=== PATIENT | female | born 1950 | race African-American/Black ===

== ENCOUNTER 2021-12-02 06:27 | Inpatient (IN) ==
[2021-12-02] MEDS ORDERED: 0.9 % Sodium Chloride 1,000 ML IVC ONE (07:01)
[2021-12-02] MEDS ORDERED: Ondansetron 4 MG/2 ML VIAL IVP ONE (07:01)
[2021-12-02] MEDS: *HR* FentaNYL (PF) 100 MCG/2 ML VIAL IVP ONE ×2 (07:27→07:41)
[2021-12-02] MEDS ORDERED: ceFAZolin 2,000 MG in Water for inj. (sterile) 20 ML IVP ONE (07:37)
[2021-12-02] MEDS ORDERED: Tdap (Boostrix) Vaccine 0.5 ML SYRINGE IM ONE (08:15)
[2021-12-02] MEDS ORDERED: Ondansetron 4 MG/2 ML VIAL IVP PRN (08:28)
[2021-12-02] MEDS ORDERED: Naloxone 0.4 MG/ML INJ IVP PRN (08:28)
[2021-12-02 08:52] LABS: Basophils % 0.4 %; Hematocrit 35.4 % (35.3-44.9); Hemoglobin 11.2 g/dL (11.5-15.4); Immature Granulocytes % 0.5 % (0-4); Lymphocytes # 1.5 K/mcL (0.6-4.6); Lymphocytes % 13.9 %; Mean Corpuscular HGB Conc 31.6 g/dL (31.6-35.5); Mean Corpuscular Hemoglobin 22.6 pg (28.0-33.3); Mean Corpuscular Volume 71.5 fL (83.0-100.0); Mean Platelet Volume 10.4 fL (9.4-12.4); Monocytes # 0.6 K/mcL (0.0-1.3); Monocytes % 5.8 %; Neutrophils # 8.8 K/mcL (1.6-8.9); Platelet Count 319 K/mcL (140-400); Red Blood Count 4.95 M/mcL (3.82-4.97); Red Cell Distribution Width 14.8 % (11.5-14.5); Segmented Neutrophils % 79.4 %; White Blood Count 11.1 K/mcL (4.3-11.1)
[2021-12-02 09:00] LABS: INR 1.1; Prothrombin Time 11.7 Seconds (9.4-12.1)
[2021-12-02 09:11] LABS: Calcium 9.7 mg/dL (8.6-10.3); Potassium 2.9 mEq/L (3.5-5.1)
[2021-12-02] MEDS ORDERED: *HR* Promethazine 25 MG/ML VIAL IM ONE (10:30)
[2021-12-02] MEDS: *HR* OxyCODONE Immed Rel 5 MG TABLET PO PRN ×2 (10:30→19:22)
[2021-12-02] MEDS: *HR* HYDROcodone/Acet 5/325 mg TABLET PO PRN (13:41)
[2021-12-02] MEDS: Aspirin 81 MG TAB.CHEW PO SCH (15:54)
[2021-12-02] MEDS: Metoprolol XL (24 HR) Succ 25 MG TAB.ER.24H PO SCH (15:54)
[2021-12-02] MEDS ORDERED: Iopamidol - 370 500 ML MLS IVP ONE (16:11)
[2021-12-02] MEDS: Acetaminophen 325 MG TABLET PO PRN (16:23)
[2021-12-02] MEDS ORDERED: Aspirin 325 MG TABLET PO ONE (18:00)
[2021-12-02] MEDS ORDERED: *HR* Heparin 5,000 UNIT/ML VIAL IVP ONE (18:39)
[2021-12-02] MEDS ORDERED: *HR* Heparin 5,000 UNIT/ML VIAL IVP PRN ×2 (18:39)
[2021-12-02] MEDS ORDERED: *HR* LORazepam 1 MG TABLET PO PRN ×3 (18:49)
[2021-12-02 20:11] LABS: Potassium 3.6 mEq/L (3.5-5.1)
[2021-12-02] MEDS: Heparin 25,000UNIT/250ML 1/2NS 25,000 UNIT/250 ML IV.SOLN IVC SCH (20:17)
[2021-12-02] MEDS: Thiamine (B-1) 200 MG in 0.9 % Sodium Chloride 50 ML IVPB SCH (20:19)
[2021-12-03] MEDS: *HR* OxyCODONE Immed Rel 5 MG TABLET PO PRN ×4 (01:34→23:26)
[2021-12-03 02:06] LABS: Basophils % 0.3 %; Eosinophils % 0.3 %; Hematocrit 32.9 % (35.3-44.9); Hemoglobin 10.2 g/dL (11.5-15.4); Immature Granulocytes % 0.4 % (0-4); Lymphocytes # 3.8 K/mcL (0.6-4.6); Mean Corpuscular Hemoglobin 22.5 pg (28.0-33.3); Mean Corpuscular Volume 72.5 fL (83.0-100.0); Mean Platelet Volume 10.5 fL (9.4-12.4); Monocytes # 1.3 K/mcL (0.0-1.3); Monocytes % 8.6 %; Neutrophils # 9.9 K/mcL (1.6-8.9); Platelet Count 274 K/mcL (140-400); Red Blood Count 4.54 M/mcL (3.82-4.97); Red Cell Distribution Width 15.2 % (11.5-14.5); Segmented Neutrophils % 65.4 %; White Blood Count 15.2 K/mcL (4.3-11.1)
[2021-12-03 02:24] LABS: Calcium 9.1 mg/dL (8.6-10.3); Magnesium 1.9 mg/dL (1.6-2.6); Potassium 3.6 mEq/L (3.5-5.1)
[2021-12-03] MEDS: *HR* HYDROcodone/Acet 5/325 mg TABLET PO PRN ×2 (05:37→20:24)
[2021-12-03] MEDS: Metoprolol XL (24 HR) Succ 25 MG TAB.ER.24H PO SCH (08:58)
[2021-12-03] MEDS: Acetaminophen 325 MG TABLET PO PRN (08:58)
[2021-12-03] MEDS: Folic Acid 1 MG TABLET PO SCH (08:59)
[2021-12-03] MEDS: cefTRIAXone 1,000 MG in 0.9 % Sodium Chloride Mini Bag 100 ML IVPB SCH (08:59)
[2021-12-03] MEDS: Aspirin 81 MG TAB.CHEW PO SCH (08:59)
[2021-12-03] MEDS: Thiamine (B-1) 200 MG in 0.9 % Sodium Chloride 50 ML IVPB SCH (10:07)
[2021-12-03 10:33] LABS: Bilirubin,Urine Negative (Negative); Blood,Urine Negative (Negative); Clarity,Urine Clear (Clear); Color,Urine Colorless (Yellow); Glucose,Urine (UA) Normal (Normal); Ketones,Urine Negative (Negative); Leukocyte Esterase,Urine Large (Negative); Mucus,Urine Few per lpf (None-Few); Nitrite,Urine Negative (Negative); PH,Urine 6.5 pH Units (5.0-8.0); Protein,Urine Negative (Neg-Trace); RBC,Urine 0-3 per hpf (0-3); Renal Epithelial Cells,Urine Few per hpf (None-Few); Specific Gravity,Urine 1.015 (1.010-1.025); Squamous Epithelial Cell,Urine Few per hpf (None-Few); Urobilinogen,Urine Normal (Normal)
[2021-12-03 11:00] LABS: Hepatitis B Surface Antigen Nonreactive (Nonreactive)
[2021-12-03 11:29] LABS: Hepatitis B Core IgM Nonreactive (Nonreactive)
[2021-12-03 11:30] LABS: Hepatitis A Antibody IgM Nonreactive (Nonreactive)
[2021-12-03] MEDS: *HR* Labetalol 20 MG/4 ML SYRINGE IVP PRN ×2 (17:42→23:57)
[2021-12-03] MEDS: Morphine Sulfate 2 MG/ML SYRINGE IVP PRN ×2 (17:52→21:59)
[2021-12-03 18:54] LABS: Hepatitis C Virus Antibody Reactive (Nonreactive)
[2021-12-04] MEDS: Heparin 25,000UNIT/250ML 1/2NS 25,000 UNIT/250 ML IV.SOLN IVC SCH (03:56)
[2021-12-04 04:22] LABS: Basophils # 0.1 K/mcL (0.0-0.2); Basophils % 0.7 %; Eosinophils # 0.1 K/mcL (0.0-0.6); Estimated Average Glucose 134 mg/dl; Hematocrit 33.5 % (35.3-44.9); Hemoglobin 10.2 g/dL (11.5-15.4); Hemoglobin A1C 6.3 %; Immature Granulocytes % 0.3 % (0-4); Lymphocytes # 3.9 K/mcL (0.6-4.6); Lymphocytes % 33.4 %; Mean Corpuscular HGB Conc 30.4 g/dL (31.6-35.5); Mean Corpuscular Hemoglobin 22.4 pg (28.0-33.3); Mean Corpuscular Volume 73.5 fL (83.0-100.0); Mean Platelet Volume 10.8 fL (9.4-12.4); Monocytes # 1.1 K/mcL (0.0-1.3); Monocytes % 9.6 %; Neutrophils # 6.4 K/mcL (1.6-8.9); Platelet Count 243 K/mcL (140-400); Red Blood Count 4.56 M/mcL (3.82-4.97); Red Cell Distribution Width 15.4 % (11.5-14.5); White Blood Count 11.7 K/mcL (4.3-11.1)
[2021-12-04 04:43] LABS: Calcium 9.1 mg/dL (8.6-10.3); Potassium 3.7 mEq/L (3.5-5.1)
[2021-12-04 04:44] LABS: Chol/HDL Ratio 2.9 (0-4.9)
[2021-12-04] MEDS: *HR* OxyCODONE Immed Rel 5 MG TABLET PO PRN ×3 (05:31→23:43)
[2021-12-04] MEDS: Thiamine (B-1) 200 MG in 0.9 % Sodium Chloride 50 ML IVPB SCH (08:21)
[2021-12-04] MEDS: cefTRIAXone 1,000 MG in 0.9 % Sodium Chloride Mini Bag 100 ML IVPB SCH (08:31)
[2021-12-04] MEDS: Folic Acid 1 MG TABLET PO SCH (08:36)
[2021-12-04] MEDS: Aspirin 81 MG TAB.CHEW PO SCH (08:36)
[2021-12-04] MEDS: Metoprolol XL (24 HR) Succ 25 MG TAB.ER.24H PO SCH (08:37)
[2021-12-04] MEDS: *HR* HYDROcodone/Acet 5/325 mg TABLET PO PRN ×2 (09:33→21:07)
[2021-12-04] MEDS ORDERED: *HR* FentaNYL (PF) 100 MCG/2 ML VIAL IVP PRN (10:24)
[2021-12-04] MEDS ORDERED: Ondansetron 4 MG/2 ML VIAL IVP PRN (10:24)
[2021-12-04] MEDS ORDERED: CeFAZolin Syr 2,000MG/20 ML 2,000 MG/20 ML SYRINGE IVPB ONE (10:30)
[2021-12-04] MEDS ORDERED: *HR* FentaNYL (PF) 100 MCG/2 ML VIAL ONE (10:59)
[2021-12-04] MEDS ORDERED: *HR* Propofol 200 MG/20 ML VIAL IVP ONE (10:59)
[2021-12-04] MEDS ORDERED: *HR* Midazolam HCl 2 MG/2 ML VIAL ONE (10:59)
[2021-12-04] MEDS ORDERED: Ondansetron 4 MG/2 ML VIAL ONE (10:59)
[2021-12-04] MEDS ORDERED: Ropivacaine/PF 0.5% 30 ML VIAL ONE (11:01)
[2021-12-04] MEDS ORDERED: ROPIVACAINE/PF/NS 0.25% 1 EACH SYRINGE INTRAART ONE (11:01)
[2021-12-04] MEDS ORDERED: Lidocaine -MPF 2% 5 ML VIAL ONE (12:19)
[2021-12-04] MEDS ORDERED: *HR* Labetalol 20 MG/4 ML SYRINGE IVP PRN (14:07)
[2021-12-04] MEDS ORDERED: *HR* Labetalol 20 MG/4 ML SYRINGE IVP ONE (14:14)
[2021-12-04] MEDS: *HR* Labetalol 20 MG/4 ML SYRINGE IVP PRN ×2 (15:55→23:44)
[2021-12-04] MEDS: Ringers Solution, Lactated 1,000 ML IVC SCH (19:00)
[2021-12-05 01:55] LABS: Basophils % 0.1 %; Hemoglobin 9.6 g/dL (11.5-15.4); Immature Granulocytes % 0.4 % (0-4); Lymphocytes # 1.2 K/mcL (0.6-4.6); Lymphocytes % 8.5 %; Mean Corpuscular Hemoglobin 22.4 pg (28.0-33.3); Mean Corpuscular Volume 72.4 fL (83.0-100.0); Mean Platelet Volume 10.2 fL (9.4-12.4); Monocytes % 6.9 %; Neutrophils # 11.9 K/mcL (1.6-8.9); Platelet Count 254 K/mcL (140-400); Red Blood Count 4.28 M/mcL (3.82-4.97); Red Cell Distribution Width 15.1 % (11.5-14.5); Segmented Neutrophils % 84.1 %; White Blood Count 14.2 K/mcL (4.3-11.1)
[2021-12-05 02:17] LABS: Calcium 9.1 mg/dL (8.6-10.3); Potassium 3.9 mEq/L (3.5-5.1)
[2021-12-05 02:47] LABS: Folate 10.4 ng/mL (3.0-16.0)
[2021-12-05] MEDS: *HR* Labetalol 20 MG/4 ML SYRINGE IVP PRN (05:44)
[2021-12-05] MEDS: Aspirin 81 MG TAB.CHEW PO SCH (07:46)
[2021-12-05] MEDS: Folic Acid 1 MG TABLET PO SCH (07:46)
[2021-12-05] MEDS: Metoprolol XL (24 HR) Succ 25 MG TAB.ER.24H PO SCH (07:46)
[2021-12-05] MEDS: cefTRIAXone 1,000 MG in 0.9 % Sodium Chloride Mini Bag 100 ML IVPB SCH (07:47)
[2021-12-05] MEDS: Acetaminophen 325 MG TABLET PO PRN (07:47)
[2021-12-05] MEDS ORDERED: amLODIPine 5 MG TABLET PO SCH (09:30)
[2021-12-05] MEDS: carvediloL 6.25 MG TABLET PO SCH ×2 (09:57→19:42)
[2021-12-05] MEDS: amLODIPine 5 MG TABLET PO SCH (11:23)
[2021-12-05] MEDS: *HR* OxyCODONE Immed Rel 5 MG TABLET PO PRN (13:16)
[2021-12-05] MEDS: Heparin 25,000UNIT/250ML 1/2NS 25,000 UNIT/250 ML IV.SOLN IVC SCH (14:19)
[2021-12-05] MEDS ORDERED: Iopamidol - 370 200 ML INFUS..BTL ONE (14:29)
[2021-12-05] MEDS ORDERED: *HR* Heparin 10,000 UNIT/10 ML VIAL ONE (14:29)
[2021-12-05] MEDS ORDERED: Heparin 1,000 UNITS/500 mL 500 ML ONE (14:29)
[2021-12-05] MEDS ORDERED: 0.9 % Sodium Chloride 2,000 ML ONE (14:29)
[2021-12-05] MEDS ORDERED: Nitroglycerin 1,000 MCG/5 ML VIAL IV ONE (14:30)
[2021-12-05] MEDS ORDERED: *HR* Midazolam HCl 2 MG/2 ML VIAL ONE ×2 (15:22→15:56)
[2021-12-05] MEDS ORDERED: *HR* FentaNYL (PF) 100 MCG/2 ML VIAL ONE (15:22)
[2021-12-05] MEDS ORDERED: carvediloL 6.25 MG TABLET ONE (19:12)
[2021-12-05] MEDS ORDERED: *HR* Heparin 5,000 UNIT/ML VIAL ONE (20:13)
[2021-12-05] MEDS ORDERED: *HR* HYDROcodone/Acet 5/325 mg TABLET ONE (20:23)
[2021-12-05] MEDS: *HR* Heparin 5,000 UNIT/ML VIAL SQ SCH (20:26)
[2021-12-05] MEDS: *HR* HYDROcodone/Acet 5/325 mg TABLET PO PRN (20:30)
[2021-12-06] MEDS: Ringers Solution, Lactated 1,000 ML IVC SCH ×2 (05:22→11:25)
[2021-12-06] MEDS: *HR* HYDROcodone/Acet 5/325 mg TABLET PO PRN (05:24)
[2021-12-06] MEDS: *HR* Heparin 5,000 UNIT/ML VIAL SQ SCH ×3 (05:24→22:02)
[2021-12-06 08:11] LABS: Basophils # 0.1 K/mcL (0.0-0.2); Basophils % 0.4 %; Eosinophils # 0.1 K/mcL (0.0-0.6); Eosinophils % 0.4 %; Hematocrit 29.6 % (35.3-44.9); Hemoglobin 9.3 g/dL (11.5-15.4); Immature Granulocytes % 0.9 % (0-4); Lymphocytes # 3.8 K/mcL (0.6-4.6); Lymphocytes % 27.9 %; Mean Corpuscular HGB Conc 31.4 g/dL (31.6-35.5); Mean Corpuscular Hemoglobin 22.9 pg (28.0-33.3); Mean Corpuscular Volume 72.7 fL (83.0-100.0); Mean Platelet Volume 10.2 fL (9.4-12.4); Neutrophils # 8.6 K/mcL (1.6-8.9); Platelet Count 257 K/mcL (140-400); Red Blood Count 4.07 M/mcL (3.82-4.97); Red Cell Distribution Width 15.2 % (11.5-14.5); Segmented Neutrophils % 63.4 %; White Blood Count 13.6 K/mcL (4.3-11.1)
[2021-12-06 08:12] LABS: BUN/Creatinine Ratio 23 (6-26); Blood Urea Nitrogen 16 mg/dL (8-23); Calcium 8.9 mg/dL (8.6-10.3); Carbon Dioxide 26 mEq/L (23-29); Chloride 106 mEq/L (98-107); Glucose 103 mg/dL (70-105); Osmolality,Calculated 287 (280-300); Potassium 3.7 mEq/L (3.5-5.1); Sodium 138 mEq/L (136-145)
[2021-12-06] MEDS ORDERED: amLODIPine 5 MG TABLET PO SCH (09:00)
[2021-12-06] MEDS ORDERED: Metoprolol XL (24 HR) Succ 50 MG TAB.ER.24H PO SCH (09:00)
[2021-12-06] MEDS: Folic Acid 1 MG TABLET PO SCH (09:54)
[2021-12-06] MEDS: lisinopriL 20 MG TABLET PO SCH (09:55)
[2021-12-06] MEDS: amLODIPine 5 MG TABLET PO SCH (09:55)
[2021-12-06] MEDS: Aspirin 81 MG TAB.CHEW PO SCH (09:55)
[2021-12-06] MEDS: cefTRIAXone 1,000 MG in 0.9 % Sodium Chloride Mini Bag 100 ML IVPB SCH (09:55)
[2021-12-06] MEDS: Morphine Sulfate 2 MG/ML SYRINGE IVP PRN ×2 (09:59→16:49)
[2021-12-06] MEDS: carvediloL 6.25 MG TABLET PO SCH ×2 (10:06→18:39)
[2021-12-06] MEDS: hydroCHLOROthiazide 25 MG TABLET PO SCH ×2 (15:26→16:49)
[2021-12-06] MEDS: *HR* OxyCODONE Immed Rel 5 MG TABLET PO PRN (22:02)
[2021-12-07 05:51] LABS: Basophils # 0.1 K/mcL (0.0-0.2); Basophils % 0.6 %; Eosinophils # 0.2 K/mcL (0.0-0.6); Eosinophils % 1.5 %; Hematocrit 32.4 % (35.3-44.9); Hemoglobin 9.9 g/dL (11.5-15.4); Immature Granulocytes % 1.2 % (0-4); Lymphocytes # 4.6 K/mcL (0.6-4.6); Lymphocytes % 35.1 %; Mean Corpuscular HGB Conc 30.6 g/dL (31.6-35.5); Mean Corpuscular Hemoglobin 22.1 pg (28.0-33.3); Mean Corpuscular Volume 72.3 fL (83.0-100.0); Mean Platelet Volume 10.6 fL (9.4-12.4); Monocytes # 1.2 K/mcL (0.0-1.3); Monocytes % 9.3 %; Neutrophils # 6.8 K/mcL (1.6-8.9); Nucleated Red Blood Cells 0.3 /100 WBC (0); Platelet Count 285 K/mcL (140-400); Red Blood Count 4.48 M/mcL (3.82-4.97); Red Cell Distribution Width 15.1 % (11.5-14.5); Segmented Neutrophils % 52.3 %
[2021-12-07 06:12] LABS: BUN/Creatinine Ratio 18 (6-26); Blood Urea Nitrogen 13 mg/dL (8-23); Calcium 9.1 mg/dL (8.6-10.3); Carbon Dioxide 25 mEq/L (23-29); Chloride 103 mEq/L (98-107); Glucose 99 mg/dL (70-105); Osmolality,Calculated 280 (280-300); Potassium 3.7 mEq/L (3.5-5.1); Sodium 135 mEq/L (136-145)
[2021-12-07] MEDS: *HR* OxyCODONE Immed Rel 5 MG TABLET PO PRN ×3 (07:13→22:13)
[2021-12-07] MEDS: *HR* Heparin 5,000 UNIT/ML VIAL SQ SCH ×3 (07:13→22:13)
[2021-12-07] MEDS: carvediloL 6.25 MG TABLET PO SCH ×2 (08:36→17:56)
[2021-12-07] MEDS: hydroCHLOROthiazide 25 MG TABLET PO SCH (08:36)
[2021-12-07] MEDS: Aspirin 81 MG TAB.CHEW PO SCH (08:37)
[2021-12-07] MEDS: amLODIPine 5 MG TABLET PO SCH (08:37)
[2021-12-07] MEDS: Folic Acid 1 MG TABLET PO SCH (08:37)
[2021-12-07] MEDS: lisinopriL 20 MG TABLET PO SCH (08:37)
[2021-12-07] MEDS: cefTRIAXone 1,000 MG in 0.9 % Sodium Chloride Mini Bag 100 ML IVPB SCH (08:38)
[2021-12-07] MEDS: Ringers Solution, Lactated 1,000 ML IVC SCH (12:59)
[2021-12-08] MEDS: *HR* OxyCODONE Immed Rel 5 MG TABLET PO PRN ×2 (04:13→22:25)
[2021-12-08 04:36] LABS: Basophils # 0.1 K/mcL (0.0-0.2); Basophils % 0.8 %; Eosinophils # 0.2 K/mcL (0.0-0.6); Eosinophils % 1.9 %; Hematocrit 35.6 % (35.3-44.9); Immature Granulocytes % 2.7 % (0-4); Lymphocytes # 1.9 K/mcL (0.6-4.6); Lymphocytes % 16.7 %; Mean Corpuscular HGB Conc 30.9 g/dL (31.6-35.5); Mean Corpuscular Hemoglobin 22.3 pg (28.0-33.3); Mean Corpuscular Volume 72.1 fL (83.0-100.0); Mean Platelet Volume 10.4 fL (9.4-12.4); Monocytes % 8.5 %; Nucleated Red Blood Cells 0.3 /100 WBC (0); Platelet Count 307 K/mcL (140-400); Red Blood Count 4.94 M/mcL (3.82-4.97); Red Cell Distribution Width 15.2 % (11.5-14.5); Segmented Neutrophils % 69.4 %; White Blood Count 11.5 K/mcL (4.3-11.1)
[2021-12-08 04:52] LABS: Calcium 9.9 mg/dL (8.6-10.3); Potassium 3.8 mEq/L (3.5-5.1)
[2021-12-08] MEDS: *HR* Heparin 5,000 UNIT/ML VIAL SQ SCH ×3 (06:40→21:49)
[2021-12-08] MEDS: Folic Acid 1 MG TABLET PO SCH (07:53)
[2021-12-08] MEDS: Aspirin 81 MG TAB.CHEW PO SCH (07:53)
[2021-12-08] MEDS: amLODIPine 5 MG TABLET PO SCH (07:54)
[2021-12-08] MEDS: cefTRIAXone 1,000 MG in 0.9 % Sodium Chloride Mini Bag 100 ML IVPB SCH (07:54)
[2021-12-08] MEDS: carvediloL 6.25 MG TABLET PO SCH ×2 (07:54→17:48)
[2021-12-08] MEDS: hydroCHLOROthiazide 25 MG TABLET PO SCH (07:54)
[2021-12-08] MEDS: lisinopriL 20 MG TABLET PO SCH (07:54)
[2021-12-08] MEDS: *HR* HYDROcodone/Acet 5/325 mg TABLET PO PRN (08:07)
[2021-12-08] MEDS: Ondansetron 4 MG/2 ML VIAL IVP PRN (11:25)
[2021-12-08] MEDS: Acetaminophen 325 MG TABLET PO PRN (22:25)
[2021-12-09] MEDS: *HR* Heparin 5,000 UNIT/ML VIAL SQ SCH ×3 (05:38→23:01)
[2021-12-09 05:40] LABS: Basophils # 0.1 K/mcL (0.0-0.2); Basophils % 0.8 %; Eosinophils # 0.1 K/mcL (0.0-0.6); Eosinophils % 0.8 %; Hematocrit 32.7 % (35.3-44.9); Hemoglobin 10.3 g/dL (11.5-15.4); Immature Granulocytes % 2.3 % (0-4); Lymphocytes # 2.4 K/mcL (0.6-4.6); Lymphocytes % 22.2 %; Mean Corpuscular HGB Conc 31.5 g/dL (31.6-35.5); Mean Corpuscular Hemoglobin 22.6 pg (28.0-33.3); Mean Corpuscular Volume 71.9 fL (83.0-100.0); Mean Platelet Volume 10.1 fL (9.4-12.4); Monocytes # 1.6 K/mcL (0.0-1.3); Monocytes % 15.4 %; Neutrophils # 6.2 K/mcL (1.6-8.9); Nucleated Red Blood Cells 0.2 /100 WBC (0); Platelet Count 288 K/mcL (140-400); Red Blood Count 4.55 M/mcL (3.82-4.97); Red Cell Distribution Width 15.3 % (11.5-14.5); Segmented Neutrophils % 58.5 %; White Blood Count 10.6 K/mcL (4.3-11.1)
[2021-12-09 06:00] LABS: Calcium 9.6 mg/dL (8.6-10.3); Potassium 3.5 mEq/L (3.5-5.1)
[2021-12-09] MEDS: Acetaminophen 325 MG TABLET PO PRN (06:43)
[2021-12-09] MEDS: carvediloL 6.25 MG TABLET PO SCH ×2 (06:51→15:05)
[2021-12-09] MEDS ORDERED: *HR* Propofol 200 MG/20 ML VIAL IVP ONE ×2 (07:40→08:37)
[2021-12-09] MEDS ORDERED: *HR* FentaNYL (PF) 100 MCG/2 ML VIAL ONE (07:40)
[2021-12-09] MEDS ORDERED: Ropivacaine/PF 0.5% 30 ML VIAL ONE (07:43)
[2021-12-09] MEDS ORDERED: *HR* HYDROmorphone PF 0.5 MG/0.5 ML SYRINGE IVP PRN (07:58)
[2021-12-09] MEDS: Aspirin 81 MG TAB.CHEW PO SCH (08:00)
[2021-12-09] MEDS: lisinopriL 20 MG TABLET PO SCH (08:00)
[2021-12-09] MEDS: cefTRIAXone 1,000 MG in 0.9 % Sodium Chloride Mini Bag 100 ML IVPB SCH (08:00)
[2021-12-09] MEDS: Folic Acid 1 MG TABLET PO SCH (08:00)
[2021-12-09] MEDS: hydroCHLOROthiazide 25 MG TABLET PO SCH (08:00)
[2021-12-09] MEDS: amLODIPine 5 MG TABLET PO SCH (08:00)
[2021-12-09] MEDS ORDERED: Lidocaine -MPF 2% 5 ML VIAL ONE (08:12)
[2021-12-09] MEDS ORDERED: *HR* Succinylcholine 200 MG/10 ML VIAL IVP ONE (08:12)
[2021-12-09] MEDS ORDERED: Ondansetron 4 MG/2 ML VIAL ONE (08:19)
[2021-12-09] MEDS ORDERED: EPHEDrine 50 MG/ML VIAL ONE (08:26)
[2021-12-09] MEDS ORDERED: Sugammadex Sodium 200 MG/2 ML VIAL IV ONE (09:07)
[2021-12-09] MEDS: *HR* OxyCODONE Immed Rel 5 MG TABLET PO PRN (19:32)
[2021-12-10] MEDS: *HR* OxyCODONE Immed Rel 5 MG TABLET PO PRN ×3 (04:05→21:07)
[2021-12-10 04:44] LABS: Basophils % 0.2 %; Hematocrit 31.2 % (35.3-44.9); Immature Granulocytes % 1.4 % (0-4); Lymphocytes # 1.6 K/mcL (0.6-4.6); Mean Corpuscular HGB Conc 32.1 g/dL (31.6-35.5); Mean Corpuscular Hemoglobin 22.8 pg (28.0-33.3); Mean Corpuscular Volume 71.2 fL (83.0-100.0); Mean Platelet Volume 9.9 fL (9.4-12.4); Monocytes # 1.6 K/mcL (0.0-1.3); Monocytes % 12.6 %; Neutrophils # 9.6 K/mcL (1.6-8.9); Nucleated Red Blood Cells 0.2 /100 WBC (0); Platelet Count 297 K/mcL (140-400); Red Blood Count 4.38 M/mcL (3.82-4.97); Red Cell Distribution Width 14.9 % (11.5-14.5); Segmented Neutrophils % 73.8 %
[2021-12-10 05:04] LABS: BUN/Creatinine Ratio 19 (6-26); Blood Urea Nitrogen 13 mg/dL (8-23); Calcium 9.5 mg/dL (8.6-10.3); Carbon Dioxide 23 mEq/L (23-29); Chloride 101 mEq/L (98-107); Glucose 125 mg/dL (70-105); Osmolality,Calculated 278 (280-300); Potassium 3.8 mEq/L (3.5-5.1); Sodium 133 mEq/L (136-145)
[2021-12-10] MEDS: *HR* Heparin 5,000 UNIT/ML VIAL SQ SCH ×3 (06:36→21:07)
[2021-12-10] MEDS: *HR* HYDROcodone/Acet 5/325 mg TABLET PO PRN ×2 (06:42→22:59)
[2021-12-10] MEDS: amLODIPine 5 MG TABLET PO SCH (09:28)
[2021-12-10] MEDS: Aspirin 81 MG TAB.CHEW PO SCH (09:28)
[2021-12-10] MEDS: lisinopriL 20 MG TABLET PO SCH (09:28)
[2021-12-10] MEDS: Folic Acid 1 MG TABLET PO SCH (09:29)
[2021-12-10] MEDS: cefTRIAXone 1,000 MG in 0.9 % Sodium Chloride Mini Bag 100 ML IVPB SCH (09:29)
[2021-12-10] MEDS: carvediloL 6.25 MG TABLET PO SCH ×2 (09:29→17:39)
[2021-12-10] MEDS: hydroCHLOROthiazide 25 MG TABLET PO SCH (09:29)
[2021-12-11] MEDS: *HR* Heparin 5,000 UNIT/ML VIAL SQ SCH ×3 (05:12→22:24)
[2021-12-11] MEDS: *HR* OxyCODONE Immed Rel 5 MG TABLET PO PRN ×2 (05:12→12:15)
[2021-12-11] MEDS: cefTRIAXone 1,000 MG in 0.9 % Sodium Chloride Mini Bag 100 ML IVPB SCH (07:31)
[2021-12-11] MEDS: Aspirin 81 MG TAB.CHEW PO SCH (07:33)
[2021-12-11] MEDS: lisinopriL 20 MG TABLET PO SCH (07:33)
[2021-12-11] MEDS: amLODIPine 5 MG TABLET PO SCH (07:33)
[2021-12-11] MEDS: Folic Acid 1 MG TABLET PO SCH (07:33)
[2021-12-11] MEDS: hydroCHLOROthiazide 25 MG TABLET PO SCH (07:33)
[2021-12-11] MEDS: carvediloL 6.25 MG TABLET PO SCH ×2 (07:33→16:58)
[2021-12-11] MEDS ORDERED: HYDROCHLOROTHIAZIDE 50 MG PO SCH (09:00)
[2021-12-11 14:41] LABS: Basophils # 0.1 K/mcL (0.0-0.2); Basophils % 0.5 %; Eosinophils % 0.3 %; Hematocrit 31.9 % (35.3-44.9); Hemoglobin 9.9 g/dL (11.5-15.4); Immature Granulocytes % 1.3 % (0-4); Lymphocytes # 3.6 K/mcL (0.6-4.6); Lymphocytes % 34.5 %; Mean Corpuscular Hemoglobin 22.7 pg (28.0-33.3); Mean Corpuscular Volume 73.2 fL (83.0-100.0); Mean Platelet Volume 10.1 fL (9.4-12.4); Monocytes # 0.9 K/mcL (0.0-1.3); Monocytes % 8.8 %; Neutrophils # 5.7 K/mcL (1.6-8.9); Platelet Count 265 K/mcL (140-400); Red Blood Count 4.36 M/mcL (3.82-4.97); Red Cell Distribution Width 15.1 % (11.5-14.5); Segmented Neutrophils % 54.6 %; White Blood Count 10.4 K/mcL (4.3-11.1)
[2021-12-11 16:36] LABS: Calcium 9.5 mg/dL (8.6-10.3); Potassium 4.5 mEq/L (3.5-5.1)
[2021-12-11] MEDS: *HR* HYDROcodone/Acet 5/325 mg TABLET PO PRN (19:41)
[2021-12-11] MEDS: Acetaminophen 325 MG TABLET PO PRN (23:14)
[2021-12-12] MEDS: *HR* Heparin 5,000 UNIT/ML VIAL SQ SCH ×3 (06:01→21:23)
[2021-12-12] MEDS: *HR* OxyCODONE Immed Rel 5 MG TABLET PO PRN ×3 (06:04→21:18)
[2021-12-12] MEDS: amLODIPine 5 MG TABLET PO SCH (08:40)
[2021-12-12] MEDS: Folic Acid 1 MG TABLET PO SCH (08:40)
[2021-12-12] MEDS: Aspirin 81 MG TAB.CHEW PO SCH (08:44)
[2021-12-12] MEDS: hydroCHLOROthiazide 25 MG TABLET PO SCH (08:44)
[2021-12-12] MEDS: carvediloL 6.25 MG TABLET PO SCH ×2 (08:44→16:26)
[2021-12-12] MEDS: lisinopriL 20 MG TABLET PO SCH (08:45)
[2021-12-12 09:38] LABS: Basophils # 0.1 K/mcL (0.0-0.2); Basophils % 0.5 %; Eosinophils # 0.1 K/mcL (0.0-0.6); Eosinophils % 0.6 %; Hematocrit 34.1 % (35.3-44.9); Hemoglobin 10.4 g/dL (11.5-15.4); Immature Granulocytes % 2.2 % (0-4); Lymphocytes # 3.8 K/mcL (0.6-4.6); Lymphocytes % 38.1 %; Mean Corpuscular HGB Conc 30.5 g/dL (31.6-35.5); Mean Corpuscular Hemoglobin 21.9 pg (28.0-33.3); Mean Corpuscular Volume 71.8 fL (83.0-100.0); Mean Platelet Volume 10.2 fL (9.4-12.4); Monocytes # 1.3 K/mcL (0.0-1.3); Monocytes % 12.8 %; Neutrophils # 4.6 K/mcL (1.6-8.9); Nucleated Red Blood Cells 0.2 /100 WBC (0); Platelet Count 331 K/mcL (140-400); Red Blood Count 4.75 M/mcL (3.82-4.97); Segmented Neutrophils % 45.8 %
[2021-12-12 09:49] LABS: Calcium 9.9 mg/dL (8.6-10.3); Potassium 3.7 mEq/L (3.5-5.1)
[2021-12-13 05:35] LABS: Basophils # 0.1 K/mcL (0.0-0.2); Basophils % 0.5 %; Eosinophils # 0.1 K/mcL (0.0-0.6); Eosinophils % 0.9 %; Hematocrit 34.6 % (35.3-44.9); Hemoglobin 10.5 g/dL (11.5-15.4); Immature Granulocytes % 1.9 % (0-4); Lymphocytes # 3.8 K/mcL (0.6-4.6); Mean Corpuscular HGB Conc 30.3 g/dL (31.6-35.5); Mean Corpuscular Hemoglobin 22.2 pg (28.0-33.3); Mean Corpuscular Volume 73.2 fL (83.0-100.0); Mean Platelet Volume 10.4 fL (9.4-12.4); Monocytes # 1.1 K/mcL (0.0-1.3); Monocytes % 11.5 %; Neutrophils # 4.3 K/mcL (1.6-8.9); Nucleated Red Blood Cells 0.2 /100 WBC (0); Platelet Count 306 K/mcL (140-400); Red Blood Count 4.73 M/mcL (3.82-4.97); Red Cell Distribution Width 14.8 % (11.5-14.5); Segmented Neutrophils % 45.2 %; White Blood Count 9.5 K/mcL (4.3-11.1)
[2021-12-13 06:01] LABS: Calcium 9.7 mg/dL (8.6-10.3); Potassium 3.5 mEq/L (3.5-5.1)
[2021-12-13] MEDS: *HR* Heparin 5,000 UNIT/ML VIAL SQ SCH ×3 (07:07→20:46)
[2021-12-13] MEDS: *HR* OxyCODONE Immed Rel 5 MG TABLET PO PRN ×3 (07:07→20:46)
[2021-12-13] MEDS: amLODIPine 5 MG TABLET PO SCH (11:10)
[2021-12-13] MEDS: lisinopriL 20 MG TABLET PO SCH (11:11)
[2021-12-13] MEDS: Folic Acid 1 MG TABLET PO SCH (11:11)
[2021-12-13] MEDS: Aspirin 81 MG TAB.CHEW PO SCH (11:11)
[2021-12-13] MEDS: hydroCHLOROthiazide 25 MG TABLET PO SCH (11:11)
[2021-12-13] MEDS: carvediloL 6.25 MG TABLET PO SCH ×2 (11:11→17:44)
[2021-12-14 06:13] LABS: Basophils # 0.1 K/mcL (0.0-0.2); Basophils % 0.5 %; Eosinophils # 0.1 K/mcL (0.0-0.6); Eosinophils % 0.9 %; Hematocrit 33.7 % (35.3-44.9); Hemoglobin 10.4 g/dL (11.5-15.4); Immature Granulocytes % 1.7 % (0-4); Lymphocytes % 36.6 %; Mean Corpuscular HGB Conc 30.9 g/dL (31.6-35.5); Mean Corpuscular Volume 71.4 fL (83.0-100.0); Mean Platelet Volume 10.1 fL (9.4-12.4); Monocytes % 9.2 %; Neutrophils # 5.6 K/mcL (1.6-8.9); Nucleated Red Blood Cells 0.2 /100 WBC (0); Platelet Count 304 K/mcL (140-400); Red Blood Count 4.72 M/mcL (3.82-4.97); Segmented Neutrophils % 51.1 %; White Blood Count 10.9 K/mcL (4.3-11.1)
[2021-12-14 06:30] LABS: Calcium 9.9 mg/dL (8.6-10.3); Potassium 3.3 mEq/L (3.5-5.1)
[2021-12-14] MEDS: *HR* Heparin 5,000 UNIT/ML VIAL SQ SCH ×3 (07:33→20:47)
[2021-12-14] MEDS: *HR* OxyCODONE Immed Rel 5 MG TABLET PO PRN ×3 (07:34→20:51)
[2021-12-14] MEDS: carvediloL 6.25 MG TABLET PO SCH ×2 (08:52→17:59)
[2021-12-14] MEDS: Aspirin 81 MG TAB.CHEW PO SCH (08:52)
[2021-12-14] MEDS: Folic Acid 1 MG TABLET PO SCH (08:52)
[2021-12-14] MEDS: hydroCHLOROthiazide 25 MG TABLET PO SCH (08:52)
[2021-12-14] MEDS: amLODIPine 5 MG TABLET PO SCH (08:53)
[2021-12-14] MEDS: lisinopriL 20 MG TABLET PO SCH (08:53)
[2021-12-14] MEDS: Acetaminophen 325 MG TABLET PO PRN (14:52)
[2021-12-15] MEDS: *HR* OxyCODONE Immed Rel 5 MG TABLET PO PRN ×2 (03:16→22:07)
[2021-12-15 05:04] LABS: Basophils # 0.1 K/mcL (0.0-0.2); Basophils % 0.5 %; Eosinophils # 0.1 K/mcL (0.0-0.6); Eosinophils % 0.7 %; Hematocrit 33.6 % (35.3-44.9); Hemoglobin 10.3 g/dL (11.5-15.4); Immature Granulocytes % 1.3 % (0-4); Lymphocytes # 3.6 K/mcL (0.6-4.6); Lymphocytes % 32.7 %; Mean Corpuscular HGB Conc 30.7 g/dL (31.6-35.5); Mean Corpuscular Hemoglobin 22.6 pg (28.0-33.3); Mean Corpuscular Volume 73.7 fL (83.0-100.0); Mean Platelet Volume 9.6 fL (9.4-12.4); Neutrophils # 6.2 K/mcL (1.6-8.9); Platelet Count 277 K/mcL (140-400); Red Blood Count 4.56 M/mcL (3.82-4.97); Red Cell Distribution Width 15.1 % (11.5-14.5); Segmented Neutrophils % 55.8 %
[2021-12-15 05:25] LABS: Calcium 9.9 mg/dL (8.6-10.3); Potassium 3.7 mEq/L (3.5-5.1)
[2021-12-15] MEDS: *HR* Heparin 5,000 UNIT/ML VIAL SQ SCH ×3 (06:48→22:01)
[2021-12-15] MEDS: Folic Acid 1 MG TABLET PO SCH (07:42)
[2021-12-15] MEDS: Aspirin 81 MG TAB.CHEW PO SCH (07:42)
[2021-12-15] MEDS: amLODIPine 5 MG TABLET PO SCH (07:43)
[2021-12-15] MEDS: lisinopriL 20 MG TABLET PO SCH (07:43)
[2021-12-15] MEDS: hydroCHLOROthiazide 25 MG TABLET PO SCH (07:43)
[2021-12-15] MEDS: carvediloL 6.25 MG TABLET PO SCH ×2 (07:43→16:34)
[2021-12-15] MEDS: *HR* HYDROcodone/Acet 5/325 mg TABLET PO PRN (12:26)
[2021-12-16 04:59] LABS: Basophils # 0.1 K/mcL (0.0-0.2); Basophils % 0.4 %; Eosinophils # 0.1 K/mcL (0.0-0.6); Eosinophils % 0.9 %; Hematocrit 32.4 % (35.3-44.9); Immature Granulocytes % 0.8 % (0-4); Lymphocytes # 3.8 K/mcL (0.6-4.6); Lymphocytes % 33.4 %; Mean Corpuscular HGB Conc 30.9 g/dL (31.6-35.5); Mean Corpuscular Hemoglobin 22.1 pg (28.0-33.3); Mean Corpuscular Volume 71.7 fL (83.0-100.0); Mean Platelet Volume 9.8 fL (9.4-12.4); Monocytes % 9.2 %; Neutrophils # 6.2 K/mcL (1.6-8.9); Platelet Count 279 K/mcL (140-400); Red Blood Count 4.52 M/mcL (3.82-4.97); Red Cell Distribution Width 14.9 % (11.5-14.5); Segmented Neutrophils % 55.3 %; White Blood Count 11.3 K/mcL (4.3-11.1)
[2021-12-16 05:14] LABS: Calcium 9.7 mg/dL (8.6-10.3); Potassium 3.6 mEq/L (3.5-5.1)
[2021-12-16] MEDS: *HR* Heparin 5,000 UNIT/ML VIAL SQ SCH ×3 (06:28→20:17)
[2021-12-16] MEDS: *HR* HYDROcodone/Acet 5/325 mg TABLET PO PRN ×2 (07:48→20:17)
[2021-12-16] MEDS: Folic Acid 1 MG TABLET PO SCH (07:48)
[2021-12-16] MEDS: Aspirin 81 MG TAB.CHEW PO SCH (07:48)
[2021-12-16] MEDS: amLODIPine 5 MG TABLET PO SCH (07:49)
[2021-12-16] MEDS: carvediloL 6.25 MG TABLET PO SCH ×2 (07:49→17:34)
[2021-12-16] MEDS ORDERED: lisinopriL 20 MG TABLET PO SCH (09:00)
[2021-12-17] MEDS: Folic Acid 1 MG TABLET PO SCH (07:39)
[2021-12-17] MEDS: Ondansetron 4 MG/2 ML VIAL IVP PRN (07:39)
[2021-12-17] MEDS: carvediloL 6.25 MG TABLET PO SCH ×2 (07:39→17:39)
[2021-12-17] MEDS: amLODIPine 5 MG TABLET PO SCH (07:39)
[2021-12-17] MEDS: Aspirin 81 MG TAB.CHEW PO SCH (07:43)
[2021-12-17] MEDS: *HR* Heparin 5,000 UNIT/ML VIAL SQ SCH ×3 (07:46→19:58)
[2021-12-17] MEDS: *HR* HYDROcodone/Acet 5/325 mg TABLET PO PRN (07:53)
[2021-12-17] MEDS: *HR* OxyCODONE Immed Rel 5 MG TABLET PO PRN (12:00)
[2021-12-18] MEDS: *HR* Heparin 5,000 UNIT/ML VIAL SQ SCH ×3 (06:17→23:40)
[2021-12-18] MEDS: *HR* OxyCODONE Immed Rel 5 MG TABLET PO PRN ×2 (06:21→20:04)
[2021-12-18] MEDS: carvediloL 6.25 MG TABLET PO SCH (08:30)
[2021-12-18] MEDS: Folic Acid 1 MG TABLET PO SCH (08:34)
[2021-12-18] MEDS: Aspirin 81 MG TAB.CHEW PO SCH (08:35)
[2021-12-18] MEDS: amLODIPine 5 MG TABLET PO SCH (08:35)
[2021-12-18 09:20] LABS: Basophils % 0.4 %; Eosinophils # 0.1 K/mcL (0.0-0.6); Eosinophils % 0.7 %; Hematocrit 32.9 % (35.3-44.9); Hemoglobin 10.1 g/dL (11.5-15.4); Immature Granulocytes % 0.7 % (0-4); Lymphocytes # 2.6 K/mcL (0.6-4.6); Lymphocytes % 24.9 %; Mean Corpuscular HGB Conc 30.7 g/dL (31.6-35.5); Mean Corpuscular Hemoglobin 22.2 pg (28.0-33.3); Mean Corpuscular Volume 72.5 fL (83.0-100.0); Monocytes # 1.1 K/mcL (0.0-1.3); Monocytes % 10.9 %; Neutrophils # 6.4 K/mcL (1.6-8.9); Platelet Count 292 K/mcL (140-400); Red Blood Count 4.54 M/mcL (3.82-4.97); Segmented Neutrophils % 62.4 %; White Blood Count 10.3 K/mcL (4.3-11.1)
[2021-12-18 09:40] LABS: Calcium 9.9 mg/dL (8.6-10.3); Magnesium 2.5 mg/dL (1.6-2.6); Potassium 3.9 mEq/L (3.5-5.1)
[2021-12-18] MEDS: Sodium Bicarbonate 150 MEQ in Water for inj. (sterile) 1,000 ML IVC SCH (20:02)
[2021-12-19] MEDS: *HR* HYDROcodone/Acet 5/325 mg TABLET PO PRN ×2 (00:52→16:51)
[2021-12-19] MEDS: Sodium Bicarbonate 150 MEQ in Water for inj. (sterile) 1,000 ML IVC SCH (05:32)
[2021-12-19] MEDS: *HR* Heparin 5,000 UNIT/ML VIAL SQ SCH ×3 (05:32→22:24)
[2021-12-19] MEDS: *HR* OxyCODONE Immed Rel 5 MG TABLET PO PRN ×2 (05:39→22:24)
[2021-12-19] MEDS: Aspirin 81 MG TAB.CHEW PO SCH (08:42)
[2021-12-19] MEDS: Folic Acid 1 MG TABLET PO SCH (08:42)
[2021-12-19] MEDS: amLODIPine 5 MG TABLET PO SCH (08:42)
[2021-12-19 09:22] LABS: Influenza A PCR Negative (Negative); Influenza B PCR Negative (Negative); Resp. Syncytial Virus PCR Negative (Negative)
[2021-12-19 09:51] LABS: SARS-CoV-2 by PCR (In House) Positive (Negative)
[2021-12-19] MEDS: Thiamine (B-1) 100 MG TABLET PO SCH (10:22)
[2021-12-19] MEDS: Multivit/Ca/Min/Fe/FA 1 TAB TABLET PO SCH (10:22)
[2021-12-19 11:07] LABS: Adenovirus Not Detected (Not Detect); Coronavirus 229E Not Detected (Not Detect); Coronavirus HKU1 Not Detected (Not Detect); Coronavirus NL63 Not Detected (Not Detect); Coronavirus OC43 Not Detected (Not Detect)
[2021-12-19 11:09] LABS: Bordetella Pertussis Not Detected (Not Detect); Chlamydophila pneumoniae Not Detected (Not Detect); Human Metapneumovirus Not Detected (Not Detect); Human Rhinovirus/Enterovirus Not Detected (Not Detect); Influenza A Subtype 2009 H1 Not Detected (Not Detect); Influenza B Not Detected (Not Detect); Mycoplasma pneumoniae Not Detected (Not Detect); Parainfluenza Virus 1 Not Detected (Not Detect); Parainfluenza Virus 2 Not Detected (Not Detect); Parainfluenza Virus 3 Not Detected (Not Detect); Parainfluenza Virus 4 Not Detected (Not Detect); Respiratory Syncytial Virus Not Detected (Not Detect)
[2021-12-19 11:10] LABS: SARS-CoV-2 DETECTED (Not Detect)
[2021-12-19 12:13] LABS: Basophils % 0.3 %; Eosinophils # 0.1 K/mcL (0.0-0.6); Eosinophils % 0.5 %; Hematocrit 31.9 % (35.3-44.9); Hemoglobin 10.1 g/dL (11.5-15.4); Immature Granulocytes % 0.4 % (0-4); Lymphocytes # 2.3 K/mcL (0.6-4.6); Lymphocytes % 24.8 %; Mean Corpuscular HGB Conc 31.7 g/dL (31.6-35.5); Mean Corpuscular Hemoglobin 22.7 pg (28.0-33.3); Mean Corpuscular Volume 71.7 fL (83.0-100.0); Mean Platelet Volume 10.2 fL (9.4-12.4); Monocytes # 1.3 K/mcL (0.0-1.3); Monocytes % 14.5 %; Neutrophils # 5.5 K/mcL (1.6-8.9); Platelet Count 291 K/mcL (140-400); Red Blood Count 4.45 M/mcL (3.82-4.97); Red Cell Distribution Width 14.7 % (11.5-14.5); Segmented Neutrophils % 59.5 %; White Blood Count 9.2 K/mcL (4.3-11.1)
[2021-12-19 12:35] LABS: Calcium 9.6 mg/dL (8.6-10.3); Magnesium 2.4 mg/dL (1.6-2.6); Potassium 3.2 mEq/L (3.5-5.1)
[2021-12-19] MEDS: Ondansetron 4 MG/2 ML VIAL IVP PRN (22:28)
[2021-12-20] MEDS: *HR* OxyCODONE Immed Rel 5 MG TABLET PO PRN ×2 (05:34→20:48)
[2021-12-20] MEDS: *HR* Heparin 5,000 UNIT/ML VIAL SQ SCH ×3 (05:35→20:49)
[2021-12-20] MEDS: Folic Acid 1 MG TABLET PO SCH (08:34)
[2021-12-20] MEDS: amLODIPine 5 MG TABLET PO SCH (08:34)
[2021-12-20] MEDS: Thiamine (B-1) 100 MG TABLET PO SCH (08:35)
[2021-12-20] MEDS: Aspirin 81 MG TAB.CHEW PO SCH (08:35)
[2021-12-20] MEDS: Multivit/Ca/Min/Fe/FA 1 TAB TABLET PO SCH (08:35)
[2021-12-20 09:54] LABS: Basophils % 0.4 %; Eosinophils # 0.1 K/mcL (0.0-0.6); Hematocrit 31.9 % (35.3-44.9); Hemoglobin 9.7 g/dL (11.5-15.4); Immature Granulocytes % 0.2 % (0-4); Lymphocytes # 2.8 K/mcL (0.6-4.6); Lymphocytes % 30.2 %; Mean Corpuscular HGB Conc 30.4 g/dL (31.6-35.5); Mean Corpuscular Volume 72.5 fL (83.0-100.0); Mean Platelet Volume 9.9 fL (9.4-12.4); Monocytes # 1.1 K/mcL (0.0-1.3); Monocytes % 12.3 %; Neutrophils # 5.2 K/mcL (1.6-8.9); Platelet Count 298 K/mcL (140-400); Red Cell Distribution Width 14.5 % (11.5-14.5); Segmented Neutrophils % 55.9 %; White Blood Count 9.3 K/mcL (4.3-11.1)
[2021-12-20] MEDS ORDERED: 0.9 % Sodium Chloride 1,000 ML IVC SCH (11:00)
[2021-12-21] MEDS: *HR* OxyCODONE Immed Rel 5 MG TABLET PO PRN ×3 (03:43→22:26)
[2021-12-21] MEDS: *HR* Heparin 5,000 UNIT/ML VIAL SQ SCH ×3 (06:02→22:23)
[2021-12-21 07:00] LABS: Basophils # 0.1 K/mcL (0.0-0.2); Basophils % 0.8 %; Eosinophils # 0.1 K/mcL (0.0-0.6); Eosinophils % 0.7 %; Hematocrit 30.8 % (35.3-44.9); Hemoglobin 9.5 g/dL (11.5-15.4); Immature Granulocytes % 0.3 % (0-4); Lymphocytes % 33.5 %; Mean Corpuscular HGB Conc 30.8 g/dL (31.6-35.5); Mean Corpuscular Hemoglobin 22.6 pg (28.0-33.3); Mean Corpuscular Volume 73.2 fL (83.0-100.0); Mean Platelet Volume 10.4 fL (9.4-12.4); Monocytes # 1.1 K/mcL (0.0-1.3); Monocytes % 11.6 %; Neutrophils # 4.8 K/mcL (1.6-8.9); Platelet Count 298 K/mcL (140-400); Red Blood Count 4.21 M/mcL (3.82-4.97); Red Cell Distribution Width 14.6 % (11.5-14.5); Segmented Neutrophils % 53.1 %; White Blood Count 9.1 K/mcL (4.3-11.1)
[2021-12-21 07:56] LABS: Calcium 9.8 mg/dL (8.6-10.3); Potassium 3.2 mEq/L (3.5-5.1)
[2021-12-21] MEDS: Folic Acid 1 MG TABLET PO SCH (09:35)
[2021-12-21] MEDS: Aspirin 81 MG TAB.CHEW PO SCH (09:35)
[2021-12-21] MEDS: Multivit/Ca/Min/Fe/FA 1 TAB TABLET PO SCH (09:35)
[2021-12-21] MEDS: Thiamine (B-1) 100 MG TABLET PO SCH (09:35)
[2021-12-21] MEDS: amLODIPine 5 MG TABLET PO SCH (09:35)
[2021-12-21] MEDS: 0.9 % Sodium Chloride 1,000 ML IVC SCH ×2 (11:36→19:59)
[2021-12-22] MEDS: 0.9 % Sodium Chloride 1,000 ML IVC SCH ×2 (04:13→12:09)
[2021-12-22] MEDS: *HR* Heparin 5,000 UNIT/ML VIAL SQ SCH ×3 (06:55→21:40)
[2021-12-22] MEDS: Multivit/Ca/Min/Fe/FA 1 TAB TABLET PO SCH (08:22)
[2021-12-22] MEDS: amLODIPine 5 MG TABLET PO SCH (08:22)
[2021-12-22] MEDS: Thiamine (B-1) 100 MG TABLET PO SCH (08:22)
[2021-12-22] MEDS: Folic Acid 1 MG TABLET PO SCH (08:22)
[2021-12-22] MEDS: Aspirin 81 MG TAB.CHEW PO SCH (08:22)
[2021-12-22] MEDS: *HR* OxyCODONE Immed Rel 5 MG TABLET PO PRN ×3 (08:22→21:46)
[2021-12-22 10:59] LABS: Calcium 9.4 mg/dL (8.6-10.3)
[2021-12-22 11:21] LABS: Basophils # 0.1 K/mcL (0.0-0.2); Basophils % 0.6 %; Eosinophils # 0.1 K/mcL (0.0-0.6); Eosinophils % 0.9 %; Hematocrit 32.6 % (35.3-44.9); Immature Granulocytes % 0.2 % (0-4); Lymphocytes # 2.2 K/mcL (0.6-4.6); Lymphocytes % 25.9 %; Mean Corpuscular HGB Conc 30.7 g/dL (31.6-35.5); Mean Corpuscular Hemoglobin 22.2 pg (28.0-33.3); Mean Corpuscular Volume 72.4 fL (83.0-100.0); Mean Platelet Volume 10.1 fL (9.4-12.4); Monocytes # 0.9 K/mcL (0.0-1.3); Monocytes % 9.9 %; Neutrophils # 5.3 K/mcL (1.6-8.9); Platelet Count 292 K/mcL (140-400); Red Cell Distribution Width 14.5 % (11.5-14.5); Segmented Neutrophils % 62.5 %; White Blood Count 8.6 K/mcL (4.3-11.1)
[2021-12-22] MEDS: *HR* Labetalol 20 MG/4 ML SYRINGE IVP PRN (21:58)
[2021-12-23 04:42] LABS: Basophils # 0.1 K/mcL (0.0-0.2); Basophils % 0.6 %; Eosinophils # 0.1 K/mcL (0.0-0.6); Eosinophils % 1.1 %; Hematocrit 31.6 % (35.3-44.9); Hemoglobin 9.7 g/dL (11.5-15.4); Immature Granulocytes % 0.2 % (0-4); Lymphocytes # 3.2 K/mcL (0.6-4.6); Lymphocytes % 34.7 %; Mean Corpuscular HGB Conc 30.7 g/dL (31.6-35.5); Mean Corpuscular Volume 71.8 fL (83.0-100.0); Mean Platelet Volume 10.2 fL (9.4-12.4); Monocytes # 0.8 K/mcL (0.0-1.3); Monocytes % 8.9 %; Neutrophils # 5.1 K/mcL (1.6-8.9); Platelet Count 301 K/mcL (140-400); Red Cell Distribution Width 14.5 % (11.5-14.5); Segmented Neutrophils % 54.5 %; White Blood Count 9.3 K/mcL (4.3-11.1)
[2021-12-23 04:59] LABS: Calcium 9.5 mg/dL (8.6-10.3); Potassium 3.1 mEq/L (3.5-5.1)
[2021-12-23] MEDS: *HR* Heparin 5,000 UNIT/ML VIAL SQ SCH ×3 (06:20→20:41)
[2021-12-23] MEDS: *HR* OxyCODONE Immed Rel 5 MG TABLET PO PRN ×3 (06:23→20:41)
[2021-12-23] MEDS ORDERED: Potassium Chloride Elixir 20 MEQ/15 ML UDC PO ONE (07:42)
[2021-12-23] MEDS: Aspirin 81 MG TAB.CHEW PO SCH (09:06)
[2021-12-23] MEDS: amLODIPine 5 MG TABLET PO SCH (09:06)
[2021-12-23] MEDS: Multivit/Ca/Min/Fe/FA 1 TAB TABLET PO SCH (09:07)
[2021-12-23] MEDS: Folic Acid 1 MG TABLET PO SCH (09:07)
[2021-12-23] MEDS: Thiamine (B-1) 100 MG TABLET PO SCH (09:07)
[2021-12-23] MEDS: Acetaminophen 325 MG TABLET PO PRN (09:22)
[2021-12-23] MEDS: 0.9 % Sodium Chloride 1,000 ML IVC SCH ×2 (10:08→14:46)
[2021-12-24] MEDS: *HR* Heparin 5,000 UNIT/ML VIAL SQ SCH ×3 (05:30→20:30)
[2021-12-24] MEDS: *HR* OxyCODONE Immed Rel 5 MG TABLET PO PRN ×2 (05:30→20:29)
[2021-12-24] MEDS: Multivit/Ca/Min/Fe/FA 1 TAB TABLET PO SCH (08:59)
[2021-12-24] MEDS: Folic Acid 1 MG TABLET PO SCH (08:59)
[2021-12-24] MEDS: Thiamine (B-1) 100 MG TABLET PO SCH (09:00)
[2021-12-24] MEDS: Aspirin 81 MG TAB.CHEW PO SCH (09:00)
[2021-12-24] MEDS: amLODIPine 5 MG TABLET PO SCH (09:00)
[2021-12-24] MEDS: Ondansetron 4 MG/2 ML VIAL IVP PRN (14:47)
[2021-12-24] MEDS: Acetaminophen 325 MG TABLET PO PRN (14:47)
[2021-12-24] MEDS: Sennosides/Docusate Sodium TABLET PO SCH ×2 (14:47→20:29)
[2021-12-24] MEDS: *HR* Labetalol 20 MG/4 ML SYRINGE IVP PRN (20:36)
[2021-12-25] MEDS: *HR* HYDROcodone/Acet 5/325 mg TABLET PO PRN ×3 (00:14→15:45)
[2021-12-25] MEDS: *HR* OxyCODONE Immed Rel 5 MG TABLET PO PRN ×2 (03:36→20:41)
[2021-12-25] MEDS: *HR* Heparin 5,000 UNIT/ML VIAL SQ SCH ×3 (05:45→20:41)
[2021-12-25] MEDS: Multivit/Ca/Min/Fe/FA 1 TAB TABLET PO SCH (07:51)
[2021-12-25] MEDS: Aspirin 81 MG TAB.CHEW PO SCH (07:51)
[2021-12-25] MEDS: Folic Acid 1 MG TABLET PO SCH (07:51)
[2021-12-25] MEDS: Sennosides/Docusate Sodium TABLET PO SCH ×2 (07:51→20:41)
[2021-12-25] MEDS: amLODIPine 5 MG TABLET PO SCH (07:51)
[2021-12-25] MEDS: Thiamine (B-1) 100 MG TABLET PO SCH (07:52)
[2021-12-26] MEDS: *HR* HYDROcodone/Acet 5/325 mg TABLET PO PRN ×2 (02:38→08:24)
[2021-12-26 05:20] LABS: Basophils # 0.1 K/mcL (0.0-0.2); Basophils % 0.5 %; Eosinophils # 0.1 K/mcL (0.0-0.6); Eosinophils % 1.1 %; Hematocrit 30.6 % (35.3-44.9); Hemoglobin 9.6 g/dL (11.5-15.4); Immature Granulocytes % 0.2 % (0-4); Lymphocytes # 2.4 K/mcL (0.6-4.6); Lymphocytes % 23.3 %; Mean Corpuscular HGB Conc 31.4 g/dL (31.6-35.5); Mean Corpuscular Hemoglobin 22.4 pg (28.0-33.3); Mean Corpuscular Volume 71.5 fL (83.0-100.0); Mean Platelet Volume 10.4 fL (9.4-12.4); Monocytes % 9.1 %; Neutrophils # 6.9 K/mcL (1.6-8.9); Platelet Count 283 K/mcL (140-400); Red Blood Count 4.28 M/mcL (3.82-4.97); Red Cell Distribution Width 14.8 % (11.5-14.5); Segmented Neutrophils % 65.8 %; White Blood Count 10.4 K/mcL (4.3-11.1)
[2021-12-26 05:38] LABS: Calcium 10.1 mg/dL (8.6-10.3)
[2021-12-26] MEDS: *HR* Heparin 5,000 UNIT/ML VIAL SQ SCH ×3 (06:17→20:32)
[2021-12-26] MEDS: amLODIPine 5 MG TABLET PO SCH (07:49)
[2021-12-26] MEDS: Aspirin 81 MG TAB.CHEW PO SCH (07:49)
[2021-12-26] MEDS: Multivit/Ca/Min/Fe/FA 1 TAB TABLET PO SCH (07:50)
[2021-12-26] MEDS: Sennosides/Docusate Sodium TABLET PO SCH ×2 (07:50→20:32)
[2021-12-26] MEDS: Folic Acid 1 MG TABLET PO SCH (07:51)
[2021-12-26] MEDS: Thiamine (B-1) 100 MG TABLET PO SCH (07:51)
[2021-12-26] MEDS: Preparation H Ointment 57 GM TUBE RC SCH (08:51)
[2021-12-26] MEDS: lisinopriL 10 MG TABLET PO SCH (13:21)
[2021-12-26] MEDS: *HR* OxyCODONE Immed Rel 5 MG TABLET PO PRN ×2 (15:41→23:28)
[2021-12-27] MEDS: *HR* Heparin 5,000 UNIT/ML VIAL SQ SCH ×3 (04:27→20:50)
[2021-12-27 06:52] LABS: Basophils # 0.1 K/mcL (0.0-0.2); Basophils % 0.6 %; Eosinophils # 0.2 K/mcL (0.0-0.6); Eosinophils % 2.3 %; Hematocrit 30.1 % (35.3-44.9); Hemoglobin 9.6 g/dL (11.5-15.4); Immature Granulocytes % 0.3 % (0-4); Lymphocytes # 3.1 K/mcL (0.6-4.6); Mean Corpuscular HGB Conc 31.9 g/dL (31.6-35.5); Mean Corpuscular Hemoglobin 22.5 pg (28.0-33.3); Mean Corpuscular Volume 70.5 fL (83.0-100.0); Mean Platelet Volume 10.4 fL (9.4-12.4); Monocytes # 0.8 K/mcL (0.0-1.3); Monocytes % 8.1 %; Neutrophils # 5.5 K/mcL (1.6-8.9); Platelet Count 297 K/mcL (140-400); Red Blood Count 4.27 M/mcL (3.82-4.97); Segmented Neutrophils % 56.7 %; White Blood Count 9.6 K/mcL (4.3-11.1)
[2021-12-27 07:09] LABS: Calcium 9.9 mg/dL (8.6-10.3); Potassium 2.9 mEq/L (3.5-5.1)
[2021-12-27] MEDS: *HR* HYDROcodone/Acet 5/325 mg TABLET PO PRN ×2 (08:27→14:51)
[2021-12-27] MEDS: Aspirin 81 MG TAB.CHEW PO SCH (08:27)
[2021-12-27] MEDS: Thiamine (B-1) 100 MG TABLET PO SCH (08:28)
[2021-12-27] MEDS: Folic Acid 1 MG TABLET PO SCH (08:28)
[2021-12-27] MEDS: Multivit/Ca/Min/Fe/FA 1 TAB TABLET PO SCH (08:28)
[2021-12-27] MEDS: Sennosides/Docusate Sodium TABLET PO SCH ×2 (08:28→20:51)
[2021-12-27] MEDS: amLODIPine 5 MG TABLET PO SCH (08:28)
[2021-12-27] MEDS: lisinopriL 10 MG TABLET PO SCH (08:28)
[2021-12-27] MEDS: Preparation H Ointment 57 GM TUBE RC SCH (08:29)
[2021-12-27] MEDS: *HR* OxyCODONE Immed Rel 5 MG TABLET PO PRN (23:17)
[2021-12-28 02:46] LABS: Calcium 9.9 mg/dL (8.6-10.3); Potassium 3.3 mEq/L (3.5-5.1)
[2021-12-28] MEDS: *HR* Heparin 5,000 UNIT/ML VIAL SQ SCH ×3 (04:34→20:48)
[2021-12-28] MEDS: *HR* HYDROcodone/Acet 5/325 mg TABLET PO PRN ×3 (04:34→22:25)
[2021-12-28] MEDS: Thiamine (B-1) 100 MG TABLET PO SCH (07:50)
[2021-12-28] MEDS: Aspirin 81 MG TAB.CHEW PO SCH (07:50)
[2021-12-28] MEDS: *HR* OxyCODONE Immed Rel 5 MG TABLET PO PRN (07:50)
[2021-12-28] MEDS: Folic Acid 1 MG TABLET PO SCH (07:50)
[2021-12-28] MEDS: Sennosides/Docusate Sodium TABLET PO SCH ×2 (07:50→20:47)
[2021-12-28] MEDS: amLODIPine 5 MG TABLET PO SCH (07:50)
[2021-12-28] MEDS: Multivit/Ca/Min/Fe/FA 1 TAB TABLET PO SCH (07:51)
[2021-12-28] MEDS: Preparation H Ointment 57 GM TUBE RC SCH (07:51)
[2021-12-28] MEDS: lisinopriL 10 MG TABLET PO SCH (07:51)
[2021-12-29 05:12] LABS: Basophils # 0.1 K/mcL (0.0-0.2); Basophils % 0.7 %; Eosinophils # 0.2 K/mcL (0.0-0.6); Eosinophils % 2.3 %; Hematocrit 31.4 % (35.3-44.9); Hemoglobin 9.9 g/dL (11.5-15.4); Immature Granulocytes % 0.1 % (0-4); Lymphocytes # 2.9 K/mcL (0.6-4.6); Mean Corpuscular HGB Conc 31.5 g/dL (31.6-35.5); Mean Corpuscular Hemoglobin 22.6 pg (28.0-33.3); Mean Corpuscular Volume 71.7 fL (83.0-100.0); Mean Platelet Volume 10.2 fL (9.4-12.4); Monocytes # 0.7 K/mcL (0.0-1.3); Monocytes % 9.1 %; Neutrophils # 3.6 K/mcL (1.6-8.9); Platelet Count 289 K/mcL (140-400); Red Blood Count 4.38 M/mcL (3.82-4.97); Red Cell Distribution Width 15.1 % (11.5-14.5); Segmented Neutrophils % 48.8 %; White Blood Count 7.4 K/mcL (4.3-11.1)
[2021-12-29 05:13] LABS: Calcium 9.9 mg/dL (8.6-10.3); Potassium 3.3 mEq/L (3.5-5.1)
[2021-12-29] MEDS: *HR* OxyCODONE Immed Rel 5 MG TABLET PO PRN (05:19)
[2021-12-29] MEDS: *HR* Heparin 5,000 UNIT/ML VIAL SQ SCH ×2 (05:19→14:42)
[2021-12-29] MEDS: Aspirin 81 MG TAB.CHEW PO SCH (08:45)
[2021-12-29] MEDS: lisinopriL 10 MG TABLET PO SCH (08:46)
[2021-12-29] MEDS: Sennosides/Docusate Sodium TABLET PO SCH (08:46)
[2021-12-29] MEDS: Multivit/Ca/Min/Fe/FA 1 TAB TABLET PO SCH (08:46)
[2021-12-29] MEDS: Thiamine (B-1) 100 MG TABLET PO SCH (08:46)
[2021-12-29] MEDS: amLODIPine 5 MG TABLET PO SCH (08:46)
[2021-12-29] MEDS: Folic Acid 1 MG TABLET PO SCH (08:46)
[2021-12-29] MEDS: Preparation H Ointment 57 GM TUBE RC SCH (08:51)
[2021-12-29] MEDS: *HR* HYDROcodone/Acet 5/325 mg TABLET PO PRN (10:52)
[2021-12-29 11:35] VITALS: BP 149/66; PULSE 61; TEMP 98.8; O2SAT 99
[2021-12-29] MEDS ORDERED: cephALEXin 500 MG CAPSULE PO SCH (11:45)
== END 2021-12-29 17:46 | DRG 463 ==
LOC: 4WAOSI 06:27 → EMEROOARM 06:27 → 4WAOSI 10:08 → SUATTDRO 18:40 → 2ANU 12-25 13:57
PROVIDERS: ADMIT Pharmacist; ATTEND Pharmacist